=== PATIENT | female | born 2000 | race Caucasian/White ===

== ENCOUNTER 2023-01-21 18:36 | Outpatient (OUT) | payer BC, MEDICAID, SELFPAY ==
--- NOTE | 2023-01-21 18:40 | US_ITS ---
The [address] [address] Patient Name: ELISE GUERRERO MRN: [id number] date: 2000 Sex: F Assigned Patient Location: Current Patient Location: Accession/Order Number: [id number] Exam Date: 01/21/2023 18:47 Report Date: 01/22/2023 08:07 At the request of: MAGO LITTLE Procedure: US pelvis Ultrasound pelvis, non-obstetric CLINICAL: ENCOUNTER INTRAUTERINE DEVICE PLACEMENT Z30.430 TECHNIQUE: Transabdominal pelvic ultrasound was performed. Patient declined transvaginal study. FINDINGS: Comparison: None. The uterus is anteverted in position. It measures 7.7 x 4.0 x 5.1 cm. There is no discrete myometrial mass. The endometrial complex measures 5 mm in thickness. There is an linear echogenic structure in the uterine cavity compatible with intrauterine device. The arms are at the fundus and stem partially seen in the uterine body. The right ovary measures 3.2 x 2.3 x 2.4 cm. There is a cyst in the right ovary measuring 1.6 x 1.3 x 1.2 cm. The left ovary is obscured by bowel and not seen. There is vascular flow to the right ovary with resistive index of 0.60. There is no free pelvic fluid or mass seen on either side. US/US pelvis IMPRESSION: 1. Partially visualized intrauterine device by transabdominal study. The patient declined the transvaginal portion of study. Arms of the intrauterine device are at the fundus, but the entirety of the IUD is not seen transabdominally. 2. Normal right ovary with an incidental 1.6 cm cyst. Left ovary is obscured by bowel and not seen. Electronically authenticated by: SYLVESTER FAULKNER Date: 01/22/2023 08:07
== END 2023-01-21 18:37 | disposition home or self-care (01) ==
LOC: US 18:36
PROVIDERS: PCP Family Medicine; Visit Provider Obstetrics & Gynecology
DX: Z30.431 Encounter for routine checking of intrauterine contraceptive device (principal)
CPT/HCPCS: 76856